=== PATIENT | male | born 1960 | race Caucasian/White ===

== ENCOUNTER 2023-12-01 10:39 | Outpatient (CLI) | payer MEDICARE, SELFPAY ==
[2023-12-01 19:16] LABS: Basophils # 0.1 K/mm3 (0-0.2); Basophils % 0.7 % (0.1-2.0); Eosinophils # 0.1 K/mm3 (0.0-0.4); Eosinophils % 1.6 % (0.1-12.0); Hematocrit 46.4 % (42.0-52.0); Hemoglobin 14.9 g/dL (14.1-18.0); Lymphocytes # 1.9 K/mm3 (0.7-4.5); Lymphocytes % 25.2 % (10-50); Mean Corpuscular HGB Conc 32.2 g/dL (31.8-35.4); Mean Corpuscular Hemoglobin 33.7 pg (27.0-31.2); Mean Corpuscular Volume 104.7 fl (80-94); Mean Platelet Volume 9.8 fl (7.4-10.4); Monocytes # 0.4 K/mm3 (0.1-1.0); Monocytes % 5.5 % (1.7-9.3); Neutrophils # 5.1 K/mm3 (1.8-7.8); Platelet Count 195 K/mm3 (142-424); Red Blood Count 4.44 M/mm3 (4.60-6.20); Red Cell Distribution Width 14.2 % (11.5-17.5); White Blood Count 7.7 K/mm3 (4.8-10.8)
[2023-12-01 20:01] LABS: Alanine Aminotransferase 19 U/L (12-78); Albumin Level 4.7 g/dl (3.5-5.0); Albumin/Globulin Ratio 1.5 (1.1-1.8); Alkaline Phosphatase 115 U/L (38-126); Anion Gap 15.8 mEq/L (5-15); Aspartate Amino Transferase 26 U/L (17-59); Bilirubin,Total 0.4 mg/dl (0.2-1.3); Blood Urea Nitrogen 19 mg/dl (9-20); Calcium 9.8 mg/dl (8.4-10.2); Carbon Dioxide 28 mmol/L (22.0-30.0); Chloride 100 mmol/L (98-107); Cholesterol 215 mg/dl (140-200); Estimated Glomerular Filt Rate 65 ml/min (>60); GFR (African American) 79 ML/MIN (>60); Globulin 3.1 g/dL (1.3-3.2); Glucose 96 mg/dl (74-100); HDL Cholesterol 36 mg/dl (40-60); Potassium 4.8 mmoL/L (3.5-5.1); Sodium 139 mmol/L (136-145); Total Protein,Serum 7.8 g/dl (6.3-8.2); Triglycerides 151 mg/dl (30-150); VLDL Cholesterol 30 mg/dL (0-40)
[2023-12-01 20:13] LABS: Direct LDL Cholesterol 136.75 mg/dL (100-129)
[2023-12-01 20:32] LABS: Prostate Specific Ag Screen 1.6 ng/ml (0.0-4.0)
== END 2023-12-01 23:59 | disposition home or self-care (01) ==
LOC: LAB.DROPOF 12-02 10:39
PROVIDERS: PCP Family Medicine; Visit Provider Family Medicine
DX: Z12.5 Encounter for screening for malignant neoplasm of prostate (principal); R19.5 Other fecal abnormalities; Z76.89 Persons encountering health services in other specified circumstances; Z79.899 Other long term (current) drug therapy
CPT/HCPCS: 80053; 80061; 85025; G0103

== ENCOUNTER 2024-03-06 06:30 | Day surgery (SDC) | payer MEDICARE, SELFPAY ==
[2024-03-06] MEDS: LACTATED RINGERS 1000ML 1,000 ML 25 ML IV (06:42)
[2024-03-06 06:51] VITALS: BP 147/88; PULSE 70; RESP 18; TEMP 36.6; O2SAT 98; BMI 29.5
--- NOTE | 2024-03-06 07:07 | [facility].SCOPE ---
Procedure: Date: 03/06/24 Patient Date of :: 1960 Procedure Performed:: Colonoscopy with polypectomy Indications:: Positive Cologuard Performing Provider:: Jose A Robles MD Referring Provider:: Dr. Yu Sedation:: Monitored anesthesia care Procedure:: After informed consent was obtained the patient was taken to the endoscopy suite. Sedation ensued after the patient was transferred to the left lateral decubitus position. Pulse, blood pressure, and oxygen saturation were monitored throughout the procedure. Digital rectal exam revealed no significant abnormality. The colonoscope was placed in position. The entire colon was evaluated. The colonoscope was carefully removed and the patient was transferred to recovery in stable condition. Please see findings and specimens below for detail. Findings:: Bowel preparation moderate to poor Fairly severe spasticity/lack of relaxation Moderate tortuosity Scattered sigmoid diverticulosis Polyp at 25 cm Specimens:: Polyp at 25 cm (cold snare) Recommendations:: Timing of repeat colonoscopy is pending pathology will likely be around 6-12 months with extended bowel preparation. Consider gastroenterology consultation for evaluation regarding possible chronic constipation. If gastroenterology consultation completed repeat colonoscopy will be deferred to their service. Consider barium enema secondary to positive Cologuard and equivocal/limited colonoscopic findings. Complications:: No immediate Estimated blood obtained (mL): 1 Colonoscopy Component Colonoscopy Component Was a colonoscopy performed during today's procedure?: Yes Recommended follow up colonoscopy of at least 10 years?: No If no, follow up colonoscopy recommended in ___ years?: (See above) Reason for not recommending >/= 10 yr follow-up interval?: (See above)
[2024-03-06 07:26] VITALS: O2SAT 98
--- NOTE | 2024-03-06 07:39 | P.PNANES_ITS ---
[facility] Disclaimer: The information contained in this section may have been updated after the patient was seen, as this information can be updated by other users. Surgical History History of radiofrequency ablation (RFA) of nerve of lumbar spine Family History (Updated 03/06/24 @ 06:48 by Soraya Garcia RN) Other No significant family history Social History (Updated 03/06/24 @ 06:50 by Soraya Garcia RN) Smoking Status: Current every day smoker alcohol intake: never substance use type: denies use current occupational status: unemployed Travel in the last 8 weeks: Inside the [facility] Anesthesia Checklist Patient Identification Patient Identification: Arm Band Structural Data Admitted From: Home Planned Operative Procedure/s: Colonoscopy Consent for Planned Operative Procedure(s) Verified: Yes Verified Documents: Surgical Consent and History and Physical NPO Status Verified Time NPO: 00:00 Additional verifications Anesthesia Reactions: No Airway Assessment Mallampati Score:: Class II C-Spine Mobility Assessed: Yes TMJ Mobility Assessed: Yes Dentition: Edentulous Neurological Assessment Level of Consciousness: Awake, Alert and Appropriate Anesthesia Plan Anesthesia Risk discussed: Yes Anesthesia Plan: Verified ASA Class: II Anesthesia Type: MAC
[2024-03-06 08:02] VITALS: BP 84/57; PULSE 61; RESP 16; TEMP 36.4; O2SAT 92
[2024-03-06 08:12] VITALS: BP 94/62; PULSE 60; RESP 16; O2SAT 96
[2024-03-06 08:22] VITALS: BP 102/56; PULSE 61; RESP 18; O2SAT 97
[2024-03-06 08:31] VITALS: BP 113/66; PULSE 61; RESP 18; O2SAT 98
== END 2024-03-06 08:31 | disposition home or self-care (01) ==
PROVIDERS: PCP Family Medicine; Visit Provider Surgery
PROC: 0DJD8ZZ Inspection of Lower Intestinal Tract, Via Natural or Artificial Opening Endoscopic (ICD-10-PCS; CPT 45385; principal; 2024-03-06 07:30)
DX: R19.5 Other fecal abnormalities (principal); K57.30 Diverticulosis of large intestine without perforation or abscess without bleeding; K63.5 Polyp of colon
CPT/HCPCS: 45385; J2704; J7120